=== PATIENT | male | born 1950 | race Caucasian/White ===

== ENCOUNTER → 2017-05-24 | Outpatient (CLI) | payer MEDICARE ==
[~2017-05-24] MED LIST: AEROECLIPSE II1 EACH MC; ALDACTONE25 MG PO; ASPIR 8181 MG PO; CARDURA 2MG TAB2 MG PO; COREG 12.5MG12.5 MG PO; FLONASE 0.05% N16 GM; GLUCOTROL XL 22.5 MG PO; HABITROL 21 MG P1 EA TD; LEVAQUIN TAB 5500 MG PO; LEVAQUIN500 MG PO; MEDROL DOSEPAK 24 MG PO; MEDROL TAB 4 MG4 MG PO; MUCINEX600 MG PO; NORCO 10-325 T1 EACH PO; PROAIR HFA8.5 GM INH; REQUIP2 MG PO; RESTORIL30 MG PO; SOTALOL80 MG PO; SPIRIVA HANDIH18 MCG INH; SPIRIVA18 MCG INH; SYMBICORT 160-1 INHA INH; VENTOLIN/PROVE0.5 ML INH; ZESTRIL40 MG PO
[2017-05-24 12:38] LABS: BUN/CREATININE RATIO 8 (0-10)
== END ==
LOC: LAB 11:55
PROVIDERS: Internal Medicine Pulmonary Disease
DX: J44.9 Chronic obstructive pulmonary disease, unspecified (principal); J96.92 Respiratory failure, unspecified with hypercapnia
CPT/HCPCS: 36415; 36600; 80048; 82803; 83880

== ENCOUNTER 2021-09-09 17:37 | Observation (INO) | payer MEDICARE ==
[~2021-09-09] VITALS: Ht 172.7 cm; Wt 70.8 kg
[~2021-09-09 17:37] MED LIST changes: +ANUSOL HC SUPP1 SUPP PR; +AZITHROMYCIN500 MG PO; +BREO ELLIPTA 11 EACH INH; +BUMETANIDE2 MG PO; +BUMEX 1MG TABLET1 MG PO; +COREG6.25 MG PO; +DIGOX250 MCG PO; +ECOTRIN81 MG PO; +EFFIENT10 MG PO; +ELIQUIS 5 MG TAB5 MG PO; +ENTRESTO 24 MG1 EACH PO; +ENTRESTO 49 MG1 EACH PO; +GLUCOTROL5 MG PO; +INCRUSE ELLI62.5 MCG INH; +KEFLEX CAP 500500 MG PO; +LOPRESSOR 25 MG25 MG PO; +REQUIP1 MG PO; +TIKOSYN500 MCG PO; +TRELEGY ELLIPT1 EACH INH; +VENTOLIN HFA 66.7 GM INH; +Viscous Lidocaine2%; +ZANAFLEX4 MG PO; +ZETIA 10 MG TAB10 MG PO
[2021-09-09 18:38] LABS: HEMOGLOBIN 11.9 gm/dl (14.0-17.5); RED BLOOD COUNT 4.21 M/UL (4.20-5.50); WHITE BLOOD COUNT 8.5 K/UL (4.5-11.0)
[2021-09-09 18:56] LABS: BUN/CREATININE RATIO 18 (0-10)
[2021-09-10] MEDS ORDERED: CARAFATE 1 GM TA1 GM PO (00:21)
[2021-09-10] MEDS ORDERED: JARDIANCE25 MG PO (00:21)
[2021-09-10] MEDS ORDERED: ENTRESTO 49 MG1 EACH PO (00:22)
[2021-09-10] MEDS ORDERED: METFORMIN HCL500 MG PO (00:22)
[2021-09-10] MEDS ORDERED: BUMETANIDE0.5 MG PO (00:23)
[2021-09-10] MEDS ORDERED: FUROSEMIDE40 MG PO (00:23)
[2021-09-10] MEDS ORDERED: CARVEDILOL12.5 MG PO (00:24)
[2021-09-10] MEDS ORDERED: TRAZODONE HCL50 MG PO (00:24)
[2021-09-10] MEDS ORDERED: ROPINIROLE HCL3 MG PO (00:24)
[2021-09-10] MEDS ORDERED: AMIODARONE HCL200 MG PO (00:25)
[2021-09-10] MEDS ORDERED: FAMOTIDINE20 MG PO (00:26)
[2021-09-10] MEDS ORDERED: MEXILETINE HCL150 MG PO (00:27)
[2021-09-11 03:19] LABS: HEMOGLOBIN 11.5 gm/dl (14.0-17.5); RED BLOOD COUNT 4.14 M/UL (4.20-5.50); WHITE BLOOD COUNT 6.5 K/UL (4.5-11.0)
[2021-09-11 04:07] LABS: BUN/CREATININE RATIO 16 (0-10)
[2021-09-11] MEDS ORDERED: POTASSIUM CHLO10 MEQ PO (09:46)
[2021-09-11] MEDS ORDERED: FUROSEMIDE40 MG PO (09:46)
== END 2021-09-11 11:02 | disposition home or self-care (01) ==
LOC: ER1 17:37 → PROG CARE 20:45 → CDU 20:45 → PROG CARE 20:45
PROVIDERS: Emergency Medicine; Internal Medicine; ADMIT Internal Medicine
DX: I11.0 Hypertensive heart disease with heart failure (principal); I50.43 Acute on chronic combined systolic (congestive) and diastolic (congestive) heart failure; J96.21 Acute and chronic respiratory failure with hypoxia; J96.22 Acute and chronic respiratory failure with hypercapnia; J44.1 Chronic obstructive pulmonary disease with (acute) exacerbation; E87.6 Hypokalemia; I25.5 Ischemic cardiomyopathy; I25.10 Atherosclerotic heart disease of native coronary artery without angina pectoris; I48.0 Paroxysmal atrial fibrillation; F17.210 Nicotine dependence, cigarettes, uncomplicated; E11.9 Type 2 diabetes mellitus without complications; I47.2 Ventricular tachycardia; I25.2 Old myocardial infarction; E43 Unspecified severe protein-calorie malnutrition; Z68.23 Body mass index [BMI] 23.0-23.9, adult; Z23 Encounter for immunization; Z20.822 Contact with and (suspected) exposure to COVID-19; Z95.810 Presence of automatic (implantable) cardiac defibrillator; Z95.1 Presence of aortocoronary bypass graft; Z99.81 Dependence on supplemental oxygen; Z95.5 Presence of coronary angioplasty implant and graft; Z79.84 Long term (current) use of oral hypoglycemic drugs; Z79.01 Long term (current) use of anticoagulants; Z79.899 Other long term (current) drug therapy
CPT/HCPCS: ECHO; 36415; 36600; 71045; 80048; 80053; 81001; 82550; 82553; 82803; 82962; 83036; 83735; 83874; 83880; 84100; 84132; 84439; 84443; 84484; 84550; 85025; 85027; 86140; 93005; 93306; 94640; 94664; 94760; 96374; 96375; 96376; 99285; G0378; J1205; J1940; U0002

== ENCOUNTER → 2021-09-12 | Outpatient (CLI) | payer MEDICARE ==
[~2021-09-12] MED LIST changes: +AMIODARONE HCL200 MG PO; +BUMETANIDE0.5 MG PO; +CARAFATE 1 GM TA1 GM PO; +CARVEDILOL12.5 MG PO; +FAMOTIDINE20 MG PO; +FUROSEMIDE40 MG PO; +JARDIANCE25 MG PO; +METFORMIN HCL500 MG PO; +MEXILETINE HCL150 MG PO; +POTASSIUM CHLO10 MEQ PO; +ROPINIROLE HCL3 MG PO; +TRAZODONE HCL50 MG PO
== END ==
LOC: NM 10:30
DX: K21.00 Gastro-esophageal reflux disease with esophagitis, without bleeding (principal); R93.3 Abnormal findings on diagnostic imaging of other parts of digestive tract
CPT/HCPCS: 78264; A9541

== ENCOUNTER 2021-09-17 02:19 | Inpatient (IN) | payer MEDICARE ==
[~2021-09-17] VITALS: Ht 172.7 cm; Wt 68.3 kg
[2021-09-17 03:00] LABS: HEMOGLOBIN 11.2 gm/dl (14.0-17.5); RED BLOOD COUNT 4.11 M/UL (4.20-5.50); WHITE BLOOD COUNT 7.9 K/UL (4.5-11.0)
[2021-09-17 03:34] LABS: BUN/CREATININE RATIO 28 (0-10)
[2021-09-18 06:46] LABS: HEMOGLOBIN 11.7 gm/dl (14.0-17.5); RED BLOOD COUNT 4.32 M/UL (4.20-5.50)
[2021-09-18 06:54] LABS: WHITE BLOOD COUNT 14.2 K/UL (4.5-11.0)
[2021-09-19 03:01] LABS: HEMOGLOBIN 10.6 gm/dl (14.0-17.5); RED BLOOD COUNT 3.95 M/UL (4.20-5.50)
[2021-09-19 03:27] LABS: BUN/CREATININE RATIO 33 (0-10)
--- NOTE | 2021-09-19 21:40 | NUR ---
PATIENT NOTED TO BE CONFUSED AND O2 SAT IS 72. HE AWAKENS TO STIMULUS BUT ISNT ORIENTED AT ALL. NOTIFIED DR KAY WHO GAVE SOME ORDERS.
[2021-09-20 02:37] LABS: HEMOGLOBIN 10.7 gm/dl (14.0-17.5); RED BLOOD COUNT 3.98 M/UL (4.20-5.50); WHITE BLOOD COUNT 11.9 K/UL (4.5-11.0)
[2021-09-20 03:43] LABS: BUN/CREATININE RATIO 32 (0-10)
--- NOTE | 2021-09-20 03:54 | NUR ---
CALLED TO NOTIFY [facility] OF PTS AST/ALT/BILI INCREASING SIGNIFICANTLY. ALSO OF PTS MENTAL STATUS CHANGE AND LOW OXYGEN. ORDERS OBTAINED.
--- NOTE | 2021-09-20 05:07 | NUR ---
CALLED AMMONIA, MYOGLOBIN, AND REPEAT LIVER ENZYMES TO DR KAY. ORDERS FOR REPEAT ABG STAT. UPDATED HIM THAT PT HAS LABORED BREATHING AND NOW ONLY RESPONDS TO PAIN. VITALS ARE FOLLOWS. BP 110/57 HR 52 O2 95 4LNC. NOTIFIED RESPIRATORY OF NEW ORDER.
--- NOTE | 2021-09-20 17:23 | NUR ---
09/20/21 1610 SUNITHA HERE TO SEE PT, UPDATED ON PT STATUS, LABS, TESTING ETC ORDERED PER MD. ALSO SPOKE TO DAUGHTER TANVI AND UPDATED ON PT STATUS. EXPLAINED CONFUSION DURING THE LAST SHIFT, SUNITHA STATES THAT PATIENT "DOES THIS WHEN HE IS IN THE HOSPITAL."
--- NOTE | 2021-09-20 17:25 | NUR ---
09/20/21 1725 ATTEMPTED TO NOTIFY DAUGHTER AND UPDATE ON PT STATUS, NO ANSWER.
[2021-09-20 17:42] LABS: BUN/CREATININE RATIO 29 (0-10)
--- NOTE | 2021-09-20 17:58 | NUR ---
09/20/21 1758 SPOKE WITH TANVI, PT DAUGHTER, UPDATED ON PT STATUS, OFF BIPAP AND ON O2 VIA NC, EXPLAINED LABS DONE BY DR OSCAR AND CT HEAD ORDERED. EXPLAINED PT REMAINS CALM AT THIS TIME, NO PULLING AT LINES ETC.
[2021-09-21 02:24] LABS: HEMOGLOBIN 10.5 gm/dl (14.0-17.5); RED BLOOD COUNT 3.89 M/UL (4.20-5.50); WHITE BLOOD COUNT 12.8 K/UL (4.5-11.0)
[2021-09-21 02:37] LABS: BUN/CREATININE RATIO 37 (0-10)
[2021-09-21 11:14] LABS: HBSAG SCREEN Negative (Negative); HEP A AB, IGM Negative (Negative); HEP B CORE AB, IGM Negative (Negative); HEP C VIRUS AB <0.1 (0.0-0.9)
[2021-09-22 04:11] LABS: HEMOGLOBIN 9.9 gm/dl (14.0-17.5); RED BLOOD COUNT 3.69 M/UL (4.20-5.50); WHITE BLOOD COUNT 10.9 K/UL (4.5-11.0)
[2021-09-22 04:47] LABS: BUN/CREATININE RATIO 34 (0-10)
[2021-09-23 03:55] LABS: BUN/CREATININE RATIO 41 (0-10)
[2021-09-24 10:09] LABS: BUN/CREATININE RATIO 32 (0-10)
[2021-09-25 09:17] LABS: BUN/CREATININE RATIO 27 (0-10)
[2021-09-26 02:12] LABS: ADENOVIRUS F 40/41 Not Detected (Negative); ASTROVIRUS Not Detected (Negative); CAMPYLOBACTER Not Detected (Negative); CLOSTRIDIUM DIFFICILE TOX A/B Not Detected (Negative); CRYPTOSPORIDIUM Not Detected (Negative); E.COLI 0157 Not Detected (Negative); ENTAMOEBA HISTOLYTICA Not Detected (Negative); ENTEROAGGREGATIVE E.COLI (EAEC Not Detected (Negative); ENTEROPATHOGENIC E.COLI (EPEC) Not Detected (Negative); ENTEROTOXIGENIC E.COLI (ETEC) Not Detected (Negative); GIARDIA LAMBLIA Not Detected (Negative); NOROVIRUS GI/GII Not Detected (Negative); PLESIOMONAS SHIGELLOIDES Not Detected (Negative); ROTOVIRUS A Not Detected (Negative); SALMONELLA Not Detected (Negative); SAPOVIRUS Not Detected (Negative); SHIG/ENTEROINVAS.ECOLI (EIEC) Not Detected (Negative); SHIGA-LIK TOX.PRO.E.COLI (STEC Not Detected (Negative); VIBRIO Not Detected (Negative); VIBRIO CHOLERAE Not Detected (Negative); YERSINIA ENTEROCOLITICA Not Detected (Negative)
[2021-09-26 02:41] LABS: BUN/CREATININE RATIO 30 (0-10)
[2021-09-26 10:19] LABS: HEMOGLOBIN 9.7 gm/dl (14.0-17.5); RED BLOOD COUNT 3.66 M/UL (4.20-5.50); WHITE BLOOD COUNT 8.4 K/UL (4.5-11.0)
[2021-09-27 05:38] LABS: HEMOGLOBIN 8.9 gm/dl (14.0-17.5); RED BLOOD COUNT 3.38 M/UL (4.20-5.50); WHITE BLOOD COUNT 6.7 K/UL (4.5-11.0)
[2021-09-27 06:15] LABS: BUN/CREATININE RATIO 21 (0-10)
[2021-09-28 10:34] LABS: HEMOGLOBIN 9.5 gm/dl (14.0-17.5); RED BLOOD COUNT 3.64 M/UL (4.20-5.50); WHITE BLOOD COUNT 6.6 K/UL (4.5-11.0)
[2021-09-28 10:44] LABS: BUN/CREATININE RATIO 20 (0-10)
--- NOTE | 2021-09-29 05:04 | NUR ---
0249: NOTIFIED BY TECH OF PT BEING UNRESPONSIVE. NO RESPIRATIONS, NO HEARTRATE IDENTIFIED. CPR WAS INITIATED IMMEDIATELY AND CODE BLUE CALLED. 0250: CODE WAS INTIATED. SEE CODE SHEET. 0309: CPR STOPPED PER DR. HERNANDEZ WHO WAS ON PHONE WITH FAMILY WHO WISHES TO STOP CPR. 0320: [facility] AND FAMILY NOTIFIED. FAMILY ARRIVIED SHORTLY AFTER, SEE CERTIFICATE FOR MORE INFO. FAMILY CONSENTED TO [facility], AWAITING FURTHER INSTRUCTIONS FROM [facility].
--- NOTE | 2021-09-29 05:34 | NUR ---
0530: DID EYE PREP ON PATIENT FOR [facility]-3 DROPS OF NORMAL SALINE PLACED IN EACH EYE. BOTH EYES COVERED WITH SALINE SOAKED GAUZE. ICE PLACED IN PT GROIN, UNDER BOTH ARMS AND BEHIND NECK PER VIK. [facility]K NOTIFIED THAT PREP WAS COMPLETED.
== END 2021-09-29 03:09 | disposition expired | DRG 871 ==
LOC: ER1 02:19 → PROG CARE 06:46 → CDU 06:46 → PROG CARE 14:24 → M/S 09-28 15:00
PROVIDERS: Family Medicine; Internal Medicine; Nurse Practitioner Family; Physician Assistant Medical; ADMIT Internal Medicine
PROC: 3E033XZ Introduction of Vasopressor into Peripheral Vein, Percutaneous Approach (ICD-10-PCS; 2021-09-17)
PROC: 5A09357 Assistance with Respiratory Ventilation, Less than 24 Consecutive Hours, Continuous Positive Airway Pressure (ICD-10-PCS; principal; 2021-09-21)
PROC: 5A0945A Assistance with Respiratory Ventilation, 24-96 Consecutive Hours, High Flow/Velocity Cannula (ICD-10-PCS; 2021-09-21)
PROC: 5A12012 Performance of Cardiac Output, Single, Manual (ICD-10-PCS; 2021-09-29)
DX: A41.9 Sepsis, unspecified organism (principal); J69.0 Pneumonitis due to inhalation of food and vomit; J96.21 Acute and chronic respiratory failure with hypoxia; Z20.822 Contact with and (suspected) exposure to COVID-19; J96.22 Acute and chronic respiratory failure with hypercapnia; G93.41 Metabolic encephalopathy; J18.9 Pneumonia, unspecified organism; R57.1 Hypovolemic shock; I50.22 Chronic systolic (congestive) heart failure; I13.0 Hypertensive heart and chronic kidney disease with heart failure and stage 1 through stage 4 chronic kidney disease, or unspecified chronic kidney disease; N17.9 Acute kidney failure, unspecified; G93.49 Other encephalopathy; J44.0 Chronic obstructive pulmonary disease with (acute) lower respiratory infection; N10 Acute pyelonephritis; E87.6 Hypokalemia; I95.9 Hypotension, unspecified; I25.10 Atherosclerotic heart disease of native coronary artery without angina pectoris; K31.84 Gastroparesis; K72.90 Hepatic failure, unspecified without coma; I44.7 Left bundle-branch block, unspecified; I27.20 Pulmonary hypertension, unspecified; E11.22 Type 2 diabetes mellitus with diabetic chronic kidney disease; I50.813 Acute on chronic right heart failure; F17.210 Nicotine dependence, cigarettes, uncomplicated; N18.2 Chronic kidney disease, stage 2 (mild); I48.0 Paroxysmal atrial fibrillation; E11.51 Type 2 diabetes mellitus with diabetic peripheral angiopathy without gangrene; E78.5 Hyperlipidemia, unspecified; I25.5 Ischemic cardiomyopathy; R53.81 Other malaise; Z95.810 Presence of automatic (implantable) cardiac defibrillator; Z95.1 Presence of aortocoronary bypass graft; Z79.01 Long term (current) use of anticoagulants; Z79.4 Long term (current) use of insulin; Z82.49 Family history of ischemic heart disease and other diseases of the circulatory system; Z99.81 Dependence on supplemental oxygen; Z79.82 Long term (current) use of aspirin
CPT/HCPCS: 31500; 36415; 36600; 70450; 71045; 71046; 76700; 80048; 80053; 80074; 80076; 80202; 81001; 82140; 82550; 82553; 82803; 82962; 83605; 83735; 83874; 83880; 84132; 84484; 85025; 85027; 85610; 87040; 87081; 87086; 87507; 92610; 92950; 93005; 94640; 94660; 94664; 94760; 96365; 96366; 96367; 96375; 97110; 97110-GP-CQ; 97161; 97166; 97530; 97530-GP-CQ; 99285; A6212; J0171; J0456; J0696; J1335; J1940; J2060; J2185; J2405; J2543; J2930; J3370; J3486; J7030; J7040; J7050; J7070; U0002